=== PATIENT | female | born 1995 | race American Indian/Alaskan Native ===

== ENCOUNTER 2017-07-12 09:32 | Day surgery (SDC) | payer OTHER ==
[2017-07-03 11:51] VITALS: BMI 19.8
[2017-07-12] MEDS ORDERED: Ciprofloxacin 400mg/200ml D5W 0 MG/0 ML BAG IVPB ONE (10:53)
[2017-07-12] MEDS ORDERED: Propofol 10 mg/ml Inj (20 ML) ONE (11:22)
[2017-07-12] MEDS ORDERED: Midazolam 2 MG/2 ML VIAL ONE (11:22)
[2017-07-12] MEDS ORDERED: Clindamycin 600mg/50ml NS 600 MG/50 ML BAG IVPB ONE (11:45)
--- NOTE | 2017-07-12 12:22 | PCM.SURG1 ---
Surgeon's Initial Post Op Note - Surgeon's Notes Surgeon: [facility] Pharmacy Technician: Dr. Dwyer PGY-3 Type of Anesthesia: General Endo Anesthesia Administered By: Dr. Monique Pre-Operative Diagnosis: Pilonidal Cyst Operative Findings: See operative report Post-Operative Diagnosis: Same Operation Performed: Excision of pilonidal cyst Specimen/Specimens Removed: Pilonidal cyst Estimated Blood Loss: EBL {In ML}: 5 Blood Products Given: N/A Drains Used: No Drains Post-Op Condition: Good Date of Surgery/Procedure: 07/12/17 Time of Surgery/Procedure: 12:22
[2017-07-12] MEDS: HYDROmorphone 0.5 mg/0.5 ml ISec IVP PRN ×3 (12:40→13:25)
[2017-07-12 15:10] VITALS: BP 123/70; PULSE 56; RESP 18; TEMP 97; O2SAT 100
--- NOTE | 2017-07-13 00:28 | OP ---
PROCEDURE DATE: 07/12/2017 PREOPERATIVE DIAGNOSIS: Recurrent pilonidal cyst. POSTOPERATIVE DIAGNOSIS: Recurrent pilonidal cyst. PROCEDURE PERFORMED: Pilonidal cystectomy. SURGEON: Sean Thompson MD FINDINGS: There are some indurated area with midline small sinus openings and scar tissue on the skin suggestive of previous multiple incision and drainage. This patient was seen in the office about a week or two ago with the same problem, was I and D'd and the lesion had subsided. She is now here for excision of the pilonidal cyst. DESCRIPTION OF PROCEDURE: After getting informed consent and explaining to the patient the procedure that has to be done including intubation for anesthesia, the patient consented with then the also came and explained to her and she consented to the intubation for anesthesia. The present findings are as previously described of the indurated evidence of previous surgery on the same side indicative of a pilonidal cyst. Under general anesthesia, the patient was prepared and draped in sterile fashion. The area was marked with indelible ink and then a wide elliptical incision was made, extended down the subcutaneous tissue. Bleeding was controlled with electrocautery. The entire area that was apparently involved with previous disease was then totally excised all the way down to the fascia. Bleeding was controlled with electrocautery and then the wound was marsupialized utilizing multiple interrupted sutures of 0 chromic and the opening left was packed with iodoform gauze. Dressing was applied. The estimated blood loss was about 5 to 10 mL. The patient tolerated the procedure quite well and left the operating room in good condition. Sean Thompson MD
== END 2017-07-12 15:28 | disposition home or self-care (01) ==
LOC: C.SDS 09:32
PROVIDERS: ATTEND Surgery
DX: L05.91 Pilonidal cyst without abscess (principal); Z88.5 Allergy status to narcotic agent; Z88.1 Allergy status to other antibiotic agents; Z88.0 Allergy status to penicillin; Z88.2 Allergy status to sulfonamides
CPT/HCPCS: 11770; 88304; J1170; J2250; J2704; J3010

== ENCOUNTER 2018-01-15 23:03 | Emergency (ER) | payer OTHER ==
[2018-01-15 23:03] VITALS: BMI 19.8
[2018-01-15 23:11] VITALS: BP 144/89; PULSE 71; RESP 18; TEMP 98.2; O2SAT 100
[2018-01-15] MEDS ORDERED: Tmp-Smz 800 mg-160 mg DS Tab PO STA (23:45)
[2018-01-15] MEDS ORDERED: Tmp-Smz 800 mg-160 mg DS Tab ONE (23:51)
--- NOTE | 2018-01-16 00:12 | C.PDOC ---
History Of Present Illness 22 year old female with PMHx of pilonidal cyst presents to the ED for evaluation. Patient states that for the past 2 days the area as been getting more swollen and painful. Patient denies fever, chills, nausea, vomit, rash. Time Seen by Provider: 01/15/18 23:21 Chief Complaint (Nursing): Back Pain History Per: Patient History/Exam Limitations: no limitations Onset/Duration Of Symptoms: Days Current Symptoms Are (Timing): Still Present Quality Of Discomfort: "Pain" Recent travel outside of the [place]: No Additional History Per: Patient Past Medical History Reviewed: Historical Data, Nursing Documentation, Vital Signs Vital Signs: Last Vital Signs Temp 98.2 F 01/15/18 23:05 Pulse 71 01/15/18 23:05 Resp 18 01/15/18 23:05 BP 144/89 01/15/18 23:05 Pulse Ox 100 01/16/18 05:34 - Medical History PMH: No Chronic Diseases Denies: Chronic Kidney Disease Surgical History: No Surg Hx Family History: States: Unknown Family Hx - Social History Hx Alcohol Use: No Hx Substance Use: No Review Of Systems Constitutional: Negative for: Fever, Chills Gastrointestinal: Negative for: Nausea, Vomiting, Diarrhea Musculoskeletal: Positive for: Back Pain Skin: Negative for: Rash Neurological: Negative for: Weakness, Numbness Physical Exam - Physical Exam Appears: Non-toxic, No Acute Distress Skin: Normal Color, Warm, Dry, Other ((+) 1cm area of mild swelling and tenderness. There is an opening of the area with no drainage. ) Head: Atraumatic, Normacephalic Eye(s): bilateral: Normal Inspection Oral Mucosa: Moist Neck: Normal ROM, Supple Chest: Symmetrical Cardiovascular: Rhythm Regular Respiratory: Normal Breath Sounds, No Rales, No Rhonchi, No Wheezing Gastrointestinal/Abdominal: Soft, No Tenderness, No Guarding, No Rebound Back: Normal Inspection Extremity: Normal ROM, No Tenderness, No Swelling Neurological/Psych: Oriented x3, Normal Speech, Normal Motor Gait: Steady ED Course And Treatment O2 Sat by Pulse Oximetry: 100 (ON RA) Pulse Ox Interpretation: Normal Medical Decision Making Medical Decision Making: Plan: * Bactrim 1 tab PO * Motrin 600 mg PO The patient was instructed to apply warm compresses. Disposition - Disposition Referrals: Sean Thompson MD [Staff Provider] - Disposition: HOME/ ROUTINE Disposition Time: 00:09 Condition: STABLE Additional Instructions: Do warm soaks and apply warm compresses 4-5 times per day. Follow up with the surgeon within 2-3 days. return if worsened. 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 - Scribe Statement The provider has reviewed the documentation as recorded by the Scribe Benedict Marino All medical record entries made by the Scribe were at my direction and personally dictated by me. I have reviewed the chart and agree that the record accurately reflects my personal performance of the history, physical exam, medical decision making, and the department course for this patient. I have also personally directed, reviewed, and agree with the discharge instructions and disposition.
== END 2018-01-16 00:15 | disposition home or self-care (01) ==
LOC: C.ER 23:03
DX: L02.212 Cutaneous abscess of back [any part, except buttock and flank] (principal)